=== PATIENT | male | born 1950 | race Caucasian/White ===

== ENCOUNTER → 2016-06-01 | Outpatient (CLI) | payer OTHER ==
[~2016-06-01] MED LIST: ASPI81TA28 PO; CEPH500C2 PO; CYAN500T PO; FLM4 PO; PHEN-775 PO
[2016-06-01 13:14] LABS: ESTIMATED AVERAGE GLUCOSE 157 mg/dl; HA1C FLAG Normal (Normal)
== END | disposition home or self-care (01) ==
LOC: C.LABBFT 08:12
PROVIDERS: ATTEND Internal Medicine
DX: E11.9 Type 2 diabetes mellitus without complications (principal)

== ENCOUNTER → 2016-10-21 | Outpatient (CLI) | payer OTHER ==
[2016-10-21 13:10] LABS: ESTIMATED AVERAGE GLUCOSE 154 mg/dl; HA1C FLAG Normal (Normal)
== END | disposition home or self-care (01) ==
LOC: C.LABBFT 07:53
PROVIDERS: ATTEND Internal Medicine
DX: E11.9 Type 2 diabetes mellitus without complications (principal)

== ENCOUNTER → 2016-11-23 | Outpatient (CLI) | payer OTHER | END | disposition home or self-care (01) | LOC: C.PATHSPEC 17:41 | PROVIDERS: ATTEND Physician Assistant Medical | DX: R39.9 Unspecified symptoms and signs involving the genitourinary system (principal) ==

== ENCOUNTER → 2016-11-30 | Outpatient (CLI) | payer OTHER ==
[2016-11-30 12:24] LABS: BLOOD UREA NITROGEN 20 mg/dl (7-18)
== END | disposition home or self-care (01) ==
LOC: C.LABBFT 07:36
PROVIDERS: ATTEND Internal Medicine
DX: R31.0 Gross hematuria (principal)

== ENCOUNTER → 2016-12-02 | Outpatient (CLI) | payer OTHER ==
[~2016-12-02] MED LIST changes: +OPTIRAY 320 IV PRN
--- NOTE | 2016-12-02 11:04 | DIAGNOSTIC IMAGING REPORT ---
ABD/PELVIS COMBO CT DOSE: 1464.44 mGycm HISTORY: Hematuria R31.0 Gross [id number] TECHNIQUE: Multiaxial CT images of the abdomen and pelvis were performed pre and post intravenous contrast enhancement. A dose lowering technique was utilized adhering to the principles of ALARA. Three-dimensional workstation evaluation was also performed COMPARISON STUDY: None. FINDINGS: Lung bases are clear. The unenhanced component of the scan shows no evidence for abnormal urinary tract calcifications. The enhanced component of the study demonstrates liver to be uniform in appearance. Spleen is unremarkable. Pancreas is uniform throughout. The adrenal glands are within normal limits. Small cortical cysts of the posterior right mid pole kidney and anterior lower pole left kidney are present. These measure 5 and 7 mm respectively. There is a 1.4 cm right renal peripelvic cyst. No major space-occupying lesions with collecting system is seen on three-dimensional evaluation. Ureters appear unremarkable. Prostate is moderately enlarged. There is a moderate impact upon the base of the bladder. There is suggestion of potential layering debris within the posterior aspect of the bladder. Cystoscopy is suggested. Possibility of a polypoid lesion posterior aspect of the bladder is considered. There is no significant abdominal pelvic or inguinal adenopathy area in the appendix is normal. Bowel pattern is nonobstructive. There are no lytic or blastic changes involving the osseous structures. IMPRESSION: 1. Layering debris and/or soft tissue within the dependent aspect of the bladder. 2. Possible polypoid lesion posterior bladder wall. 3. Cystoscopy is suggested as follow-up. 4. Small bilateral renal cysts. 5. No significant abnormality of the upper urinary tracts is appreciated. 6. Moderate prostate enlargement. The above report was generated using voice recognition software. It may contain grammatical, syntax or spelling errors. Electronically signed by: Sal Ryder M.D. 12/02/2016 11:02 AM Dictated Date/Time: 12/02/2016 10:56 AM
== END | disposition home or self-care (01) ==
LOC: C.CTS 10:01
PROVIDERS: ATTEND Physician Assistant Medical
DX: R31.0 Gross hematuria (principal)

== ENCOUNTER → 2016-12-09 | Outpatient (CLI) | payer OTHER ==
[~2016-12-09] MED LIST changes: -OPTIRAY 320 IV PRN
== END | disposition home or self-care (01) ==
LOC: C.LABSPEC 14:59
PROVIDERS: ATTEND Urology
DX: R31.0 Gross hematuria (principal)

== ENCOUNTER → 2016-12-29 | Day surgery (SDC) | payer OTHER ==
[2016-12-16 08:09] VITALS: BMI 29.0
--- NOTE | 2016-12-16 08:39 | PAT Medication Instructions ---
Service Date Dec 16, 2016. Current Home Medication List Aspirin (Aspirin Ec), 81 MG PO QAM Cyanocobalamin (Vitamin B-12), 500 MCG PO QAM Tamsulosin HCl (Tamsulosin HCl), 0.4 MG PO HS Medication Instructions For Your Scheduled Surgery - Held per surgeon's instructions: Aspirin (Aspirin Ec), 81 MG PO QAM Cyanocobalamin (Vitamin B-12), 500 MCG PO QAM - Take the following medications as scheduled the night before surgery: Tamsulosin HCl (Tamsulosin HCl), 0.4 MG PO HS Nothing to eat or drink after midnight If you have any questions please call us at [phone] or [phone] or [phone]
--- NOTE | 2016-12-16 09:23 | DIAGNOSTIC IMAGING REPORT ---
CHEST PREADMISSION(PA/LAT) CLINICAL HISTORY: 66 years-old Male presenting with PAT. TECHNIQUE: PA and lateral views of the chest were obtained. COMPARISON: None. FINDINGS: Cardiomediastinal silhouette normal. Lungs and pleural spaces clear. Osseous structures normal. Upper abdomen normal. IMPRESSION: 1. No acute cardiopulmonary disease. Electronically signed by: Kristofer Coelho M.D. 12/16/2016 9:21 AM Dictated Date/Time: 12/16/2016 9:21 AM
[2016-12-16 10:06] LABS: BASO % 0.2 %; BASO ABS # 0.01 K/uL (0-0.2); COMPLETE YES; EOS % 2.1 %; HEMATOCRIT 43.3 % (42-52); IG% 0.5 %; LYMPH % 30.8 %; LYMPH ABS # 1.35 K/uL (1.2-3.4); MEAN CELL VOLUME 92.9 fL (80-100); MEAN CORPUSCULAR HEMOGLOBIN 30.7 pg (25-34); MONO % 12.1 %; NEUT % 54.3 %; PLATELET COUNT 188 K/uL (130-400); RED BLOOD COUNT 4.66 M/uL (4.7-6.1); WHITE BLOOD COUNT 4.39 K/uL (4.8-10.8)
[2016-12-16 10:24] LABS: BUN/CREATININE RATIO 14.9 (10-20); CREATININE 1.1 mg/dl (0.60-1.40); POTASSIUM 4.4 mmol/L (3.5-5.1)
[~2016-12-29] VITALS: Ht 167.6 cm; Wt 82.1 kg
[~2016-12-29] MED LIST changes: +ATROPINE SULFATE 0.1 MG/ML 5ML SYR IV PRN; +CEFAZOLIN 2000 MG/60 ML D5W IV SCH; +DEXAMETHASONE SOD INJ 4 MG/ML VIAL ONE; +EpHEDrine SULFATE INJ 50 MG/ML AMP IV PRN; +FENTANYL CITRATE INJ 50 MCG/1 ML 2 ML VIAL IV PRN; +FENTANYL CITRATE INJ 50 MCG/1 ML 2 ML VIAL ONE; +FLUMAZENIL 0.1 MG/1 ML 10 ML VIAL IV PRN; +HYDROmorphone INJ 2 MG/ML SYR/VIAL IV PRN; +LABETALOL HCL IV 5 MG/ML 20ML IV PRN; +LACTATED RINGER'S 1000ML 1,000 ML IV SCH; +LIDOCAINE HCL 2% 2 ML VIAL (20MG/ML) ONE; +MEPERIDINE HCL 25 MG/ML CARP IV PRN; +MIDAZOLAM HCL 1 MG/ML 2ML VIAL ONE; +NALOXONE HCL 0.4 MG/1 ML VIAL/CARP IV PRN; +ONDANSETRON INJ 2 MG/ML 2 ML VIAL IV PRN; +ONDANSETRON INJ 2 MG/ML 2 ML VIAL ONE; +PHENYLEPHRINE 100MCG/ML 5ML SYR IV PRN; +PROPOFOL IV EMULSION 10 MG/ML 20 ML VIAL IV ONE
[2016-12-29 06:06] VITALS: BP 152/79; PULSE 65; TEMP 36.6; O2SAT 98; Ht 167.6 cm; Wt 82.1 kg
--- NOTE | 2016-12-29 07:14 | History & Physical Bridge Note ---
H&P Re-Evaluation Bridge Note: I have examined the patient, reviewed the History & Physical and in the interval since the performance of the History & Physical I have noted the following changes of clinical significance: Cysto, Possible Biopsy, TURBT, Bilateral Retrogrades. No changes noted
--- NOTE | 2016-12-29 07:47 | [facility] Operative Report ---
Operative Report Operative Date Dec 29, 2016. Pre-Operative Diagnosis Gross Hematuria possible Mass Post-Operative Diagnosis Gross Hematuria No Mass Seen Procedure(s) Performed Cystoscopy and Urethral Dilation Surgeon Dr. 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 Dilated. Trilobar enlargement of Prostate and projection of lateral lobes into bladder neck. No masses, lesions, or areas of concern on bladder. Urine jet appreciated from both ureters. Fluids See Anes Report Specimens No Specimen Drains None Anesthesia General Complication(s) None Disposition Recovery Room / PACU Indications Gross hematuria with questionable mass and debris on CT scan. Description of Procedure Patient was consented and brought back to the operating room. Patient was placed under anesthesia and into the dorsal lithotomy position. A time out was completed. Patient found to have stenosis of the meatus, which was dilated for scope placement. A 30degree Cystoscope was placed into the urethra and advanced. A bulbar urethral stricture was noted and dilated and bypassed. The prostatic urethra had considerable lateral lobe enlargement with small median lobe and considerable projection of lateral lobe into bladder neck. The scope was advanced into the bladder and the entire bladder was examined. The UO's were identified. Urine jets were noted. The 70 degree scope was then placed and the area once again examined. No masses or lesions noted. no areas of irritation. Small sediment noted at bladder base. The bladder was emptied. The scope was removed. The patient was cleaned, aroused from anesthesia, and transferred to the pacu in stable condition having tolerated the procedure well with no complications. I was present and participated in all aspects of the procedure. The patient will be monitored in the PACU until transferred. I attest to the content of the Intraoperative Record and any orders documented therein. Any exceptions are noted below.
--- NOTE | 2016-12-29 07:50 | Discharge Instructions ---
Discharge Instructions Date of Service Dec 29, 2016. Admission Reason for Admission: Hematuria Discharge Discharge Diagnosis / Problem: GH, Possible mass Discharge Goals Goal(s): Decrease discomfort, Improve function Activity Recommendations Activity Limitations: resume your previous activity Lifting Limitations: none Exercise/Sports Limitations: none May Resume Sexual Activity: when tolerated Shower/Bathe: no limitations Driving or Machine Use: no limitations . Instructions / Follow-Up Instructions / Follow-Up Expect blood in urine and burning with urination. May have flank or abdominal discomfort. Call if any fevers or chills. Current Hospital Diet Hospital Diet(s): Regular Diet Discharge Diet Recommended Diet: Regular Diet Procedures Procedures Performed: Cystoscopy and Urethral Dilation Pending Studies Studies pending at discharge: no Laboratory Results Hemoglobin A1c Test 10/21/16 07:56 Range/Units Estimated Average Glucose 154 mg/dl Hemoglobin A1c 7.0 H 4.5-5.6 % Medical Emergencies . Who to Call and When: Medical Emergencies: If at any time you feel your situation is an emergency, please call 911 immediately. . Non-Emergent Contact Non-Emergency issues call your: Primary Care Provider, Urologist Call Non-Emergent contact if: you have a fever, temperature is above 101.5, your pain is not controlled . . "Provider Documentation" section prepared by Zohaib Armstrong,. . VTE Core Measure Inpt VTE Proph given/why not?: Em Lu, SCD's
--- NOTE | 2016-12-29 08:23 | Anesthesiology Progress Note ---
Anesthesia Post Op Note Date & Time Dec 29, 2016 at 08:23 Vital Signs Pain Intensity: 0 Vital Signs Past 12 Hours Date Time Temp Pulse Resp B/P (MAP) Pulse Ox O2 Delivery O2 Flow Rate FiO2 12/29/16 08:10 57 14 121/78 99 Oxymask 2 12/29/16 08:00 60 16 111/77 99 Oxymask 5 12/29/16 07:53 36.1 55 16 117/71 99 Oxymask 10 12/29/16 06:06 36.6 65 18 152/79 (103) 98 Room Air Notes Mental Status: alert / awake / arousable, participated in evaluation Pt Amnestic to Procedure: Yes Nausea / Vomiting: adequately controlled Pain: adequately controlled Airway Patency, RR, SpO2: stable & adequate BP & HR: stable & adequate Hydration State: stable & adequate Anesthetic Complications: no major complications apparent
[2016-12-29 08:40] VITALS: BP 119/72; PULSE 57; TEMP 36.5; O2SAT 95
[2016-12-29 09:10] VITALS: BP 125/74; PULSE 59; TEMP 36.2; O2SAT 97
[2016-12-29 09:50] VITALS: BP 147/76; PULSE 60; TEMP 36.2; O2SAT 97
== END | disposition home or self-care (01) ==
LOC: C.ACU 05:42
PROVIDERS: ATTEND Urology
DX: R31.0 Gross hematuria (principal); N35.9 Urethral stricture, unspecified; E11.9 Type 2 diabetes mellitus without complications; E78.5 Hyperlipidemia, unspecified; Z83.3 Family history of diabetes mellitus; Z82.0 Family history of epilepsy and other diseases of the nervous system; Z80.3 Family history of malignant neoplasm of breast; Z82.49 Family history of ischemic heart disease and other diseases of the circulatory system; Z80.1 Family history of malignant neoplasm of trachea, bronchus and lung; Z87.891 Personal history of nicotine dependence; Z79.82 Long term (current) use of aspirin

== ENCOUNTER → 2017-06-01 | Outpatient (CLI) | payer OTHER ==
[~2017-06-01] MED LIST changes: -ATROPINE SULFATE 0.1 MG/ML 5ML SYR IV PRN; -CEFAZOLIN 2000 MG/60 ML D5W IV SCH; -DEXAMETHASONE SOD INJ 4 MG/ML VIAL ONE; -EpHEDrine SULFATE INJ 50 MG/ML AMP IV PRN; -FENTANYL CITRATE INJ 50 MCG/1 ML 2 ML VIAL IV PRN; -FENTANYL CITRATE INJ 50 MCG/1 ML 2 ML VIAL ONE; -FLUMAZENIL 0.1 MG/1 ML 10 ML VIAL IV PRN; -HYDROmorphone INJ 2 MG/ML SYR/VIAL IV PRN; -LABETALOL HCL IV 5 MG/ML 20ML IV PRN; -LACTATED RINGER'S 1000ML 1,000 ML IV SCH; -LIDOCAINE HCL 2% 2 ML VIAL (20MG/ML) ONE; -MEPERIDINE HCL 25 MG/ML CARP IV PRN; -MIDAZOLAM HCL 1 MG/ML 2ML VIAL ONE; -NALOXONE HCL 0.4 MG/1 ML VIAL/CARP IV PRN; -ONDANSETRON INJ 2 MG/ML 2 ML VIAL IV PRN; -ONDANSETRON INJ 2 MG/ML 2 ML VIAL ONE; -PHEN-775 PO; -PHENYLEPHRINE 100MCG/ML 5ML SYR IV PRN; -PROPOFOL IV EMULSION 10 MG/ML 20 ML VIAL IV ONE
[2017-06-01 12:30] LABS: BASO % 0.2 %; BASO ABS # 0.01 K/uL (0-0.2); EOS % 1.4 %; EOS ABS # 0.07 K/uL (0-0.5); HEMATOCRIT 41.8 % (42-52); HEMOGLOBIN 14.5 g/dL (14.0-18.0); IG# 0.01 K/uL (0.00-0.02); LYMPH % 32.1 %; LYMPH ABS # 1.55 K/uL (1.2-3.4); MEAN CELL VOLUME 90.5 fL (80-100); MEAN CORPUSCULAR HEMOGLOBIN 31.4 pg (25-34); MEAN CORPUSCULAR HGB CONC 34.7 g/dl (32-36); MEAN PLATELET VOLUME 10.7 fL (7.4-10.4); MONO % 10.4 %; NEUT % 55.7 %; NEUT ABS # 2.69 K/uL (1.4-6.5); PLATELET COUNT 174 K/uL (130-400); RED CELL DISTRIBUTION WIDTH CV 13.4 % (11.5-14.5); RED CELL DISTRIBUTION WIDTH SD 43.7 fL (36.4-46.3); WHITE BLOOD COUNT 4.83 K/uL (4.8-10.8)
[2017-06-01 12:37] LABS: ALBUMIN 3.6 gm/dl (3.4-5.0); ALT/SGPT 47 U/L (12-78); AST/SGOT 24 U/L (15-37); BLOOD UREA NITROGEN 15 mg/dl (7-18); CALCIUM 8.5 mg/dl (8.5-10.1); CARBON DIOXIDE 26 mmol/L (21-32); CHOLESTEROL 286 mg/dl (0-200); CREATININE 0.99 mg/dl (0.60-1.40); GLUCOSE 154 mg/dl (70-99); POTASSIUM 4.1 mmol/L (3.5-5.1); SODIUM 137 mmol/L (136-145)
[2017-06-01 12:39] LABS: HEMOGLOBIN A1C 8.2 % (4.5-5.6)
[2017-06-01 12:42] LABS: ALKALINE PHOSPHATASE 62 U/L (45-117); TOTAL PROTEIN 7.3 gm/dl (6.4-8.2)
== END | disposition home or self-care (01) ==
LOC: C.LABBFT 08:06
PROVIDERS: ATTEND Internal Medicine
DX: Z11.59 Encounter for screening for other viral diseases (principal); N40.1 Benign prostatic hyperplasia with lower urinary tract symptoms; R31.0 Gross hematuria; R39.9 Unspecified symptoms and signs involving the genitourinary system; E11.9 Type 2 diabetes mellitus without complications; E78.5 Hyperlipidemia, unspecified; F52.8 Other sexual dysfunction not due to a substance or known physiological condition